=== PATIENT | female | born 1990 | race Caucasian/White ===

== ENCOUNTER 2017-10-21 19:25 | Emergency (ER) | payer SELFPAY ==
[~2017-10-21] VITALS: Ht 264.2 cm; Wt 79.4 kg
[~2017-10-21 19:25] MED LIST: CEPHALEXIN500 MG PO; CIPRO250 MG PO; CIPRO500 MG PO; IBUPROFEN600 MG PO; IRON325 M1 PO; KEFLEX500 MG PO; NEURONTIN300 MG PO; NORCO 5-325 TA1 EACH PO; OXYCODON-ACETA1 EAC2 PO; TUSSIN CF COUG118 ML PO; TYLENOL EXTRA500 MG PO; VENTOLIN HFA18 GM INH; VITAMIN C500 M1 PO; ZOFRAN ODT4 MG PO; ZOFRAN ODT4 MG SL
[2017-10-21] MEDS ORDERED: AMOXICILLIN500 MG PO (21:31)
== END 2017-10-21 21:59 | disposition home or self-care (01) ==
LOC: ED 19:25
DX: J02.9 Acute pharyngitis, unspecified (principal); D64.9 Anemia, unspecified; F17.200 Nicotine dependence, unspecified, uncomplicated; Z88.5 Allergy status to narcotic agent; Z88.8 Allergy status to other drugs, medicaments and biological substances
CPT/HCPCS: 87081; 87147; 87880; 99283

== ENCOUNTER 2020-03-11 19:09 | Emergency (ER) | payer OTHER ==
[~2020-03-11] VITALS: Ht 162.6 cm; Wt 90.7 kg
[~2020-03-11 19:09] MED LIST changes: +AMOXICILLIN500 MG PO
[2020-03-11] MEDS ORDERED: MELOXICAM15 MG PO (20:21)
[2020-03-11] MEDS ORDERED: CITALOPRAM HBR10 MG PO (20:22)
== END 2020-03-11 21:05 | disposition home or self-care (01) ==
LOC: ED 19:09
DX: T65.891A Toxic effect of other specified substances, accidental (unintentional), initial encounter (principal); H10.212 Acute toxic conjunctivitis, left eye; D64.9 Anemia, unspecified; F17.200 Nicotine dependence, unspecified, uncomplicated; Z88.5 Allergy status to narcotic agent; Z88.8 Allergy status to other drugs, medicaments and biological substances; Z79.899 Other long term (current) drug therapy
CPT/HCPCS: 99283

== ENCOUNTER 2020-08-28 13:57 | Emergency (ER) | payer OTHER ==
[~2020-08-28] VITALS: Ht 162.6 cm; Wt 104.3 kg
[~2020-08-28 13:57] MED LIST changes: +CITALOPRAM HBR10 MG PO; +MELOXICAM15 MG PO
[2020-08-28] MEDS ORDERED: PREDNISONE20 MG PO (16:45)
--- NOTE | 2020-08-29 12:38 | EKG ---
[facility] [address] [facility] [place], [place] [address] Signed Normal sinus rhythm with sinus arrhythmia Normal ECG No previous ECGs available Confirmed by HANK AMES DO ([id number]) on 08/29/2020 12:38:39 PM Electronically Signed By: HANK AMES DO 08/29/20 1238 PATIENT NAME: KIPANDRES NICHOLS Electrocardiogram DATE OF : [birth year] PHYSICIAN: HANK AMES DO REPORT #: [id number] REPORT IS CONFIDENTIAL AND NOT TO BE RELEASED WITHOUT AUTHORIZATION
== END 2020-08-28 16:58 | disposition home or self-care (01) ==
LOC: ED 13:57
DX: J45.901 Unspecified asthma with (acute) exacerbation (principal); Z20.828 Contact with and (suspected) exposure to other viral communicable diseases; D64.9 Anemia, unspecified; Z87.891 Personal history of nicotine dependence; Z88.5 Allergy status to narcotic agent; Z88.8 Allergy status to other drugs, medicaments and biological substances; Z79.899 Other long term (current) drug therapy
CPT/HCPCS: 71045; 80053; 83735; 84484; 85025; 93005; 93010; 99285-25; C9803; J7512; U0003

== ENCOUNTER 2021-03-02 05:41 | Day surgery (SDC) | payer BC, OTHER ==
[~2021-03-02] VITALS: Ht 162.6 cm; Wt 100.0 kg
[~2021-03-02 05:41] MED LIST changes: +HYDROXYZINE HCL50 MG PO; +PREDNISONE20 MG PO; +WELLBUTRIN SR150 MG PO
--- NOTE | 2021-03-02 06:40 | NUR ---
DENIES ANY NEEDS UPDATED. IV PATENT.
--- NOTE | 2021-03-02 08:58 | NUR ---
03/02/21 0858 Amrita Duran 0850-PT TO PACU IN SF POSITION. RESPONDS TO VERBAL AND TACTILE STIMULI. KEEPS EYES CLOSED. DROWSY. UNABLE TO RATE PAIN. BREATHING EASY AND UNLABORED. SPO2 >95% ON 6 L O2 VIA SIMPLE MASK. DRESSINGS CDI.
--- NOTE | 2021-03-02 09:48 | NUR ---
PT ALERT, ORIENTED AND SUPPORTED BY HER LIFE PARTNER YESENIA. HE IS CONCERNED ABOUT PT'S ANXIOUS FEELINGS. GAVE ENCOURAGEMENT, DID SOME DEBRIEFING AND HELPED PT KNOW WHAT TO EXPECT. THIS SEEMED TO HELP HER AND THAT DR LARA CAME TO VISIT WITH HER. PT REQUESTED PRAYER, YESENIA WITH REMAIN IN BLDG. WILL FOLLOW NEEDED
--- NOTE | 2021-03-02 11:50 | NUR ---
1140 STATES PAIN 4/10 MUCH BETTER AND IS READY TO GO HOME.
--- NOTE | 2021-03-03 10:44 | PATH ---
[facility] [address] [place], [place] [address] Signed SPECIMEN(S): A ENDOMETRIAL POLYP CURRETTINGS SPECIMEN SOURCE: A. ENDOMETRIAL POLYP CURRETTINGS CLINICAL HISTORY: PCOS; dysmenorrhea; dyspareunia FINAL PATHOLOGIC DIAGNOSIS: Endometrium and polyp, curettage: - Fragments of benign endometrial polyp. - Background proliferative endometrium. - Fragments of myometrium with no histopathologic abnormality. - Negative for atypical hyperplasia or malignancy. NAL:cml:C2NR MICROSCOPIC EXAMINATION: Histologic sections of all submitted blocks are examined by light microscopy. These findings, together with the gross examination, support the pathologic diagnosis. GROSS DESCRIPTION: The specimen, labeled "HW, endometrial polyp and curettings," is received in formalin and consists of irregularly shaped pink-mariee, membranous tissue fragments that in aggregate measure 3.0 x 2.5 x 0.2 cm. Specimen is entirely submitted in cassette (A1). JS (under the direct supervision of a pathologist) The Gross Description was prepared using a voice recognition system. The report was reviewed for accuracy; however, sound-alike word errors, addition and/or deletions may occur. If there is any question about this report, please contact Client Services. PERFORMING LABORATORY: The technical component was performed by [facility], [address] [place] [id number] (Box Printing Machine Operator: Ellen Silva MD; CLIA# [id number]). [facility], [address] [address] (CLIA# [id number]). Diagnostician: Frances Noel MD Pathologist PATIENT NAME: ANDRES SHIN PATHOLOGY DATE OF : [birth year] REPORT #: [id number] PHYSICIAN: ALAN PATHOLOGY PCP: DAMIAN SOSA PA-C REPORT IS CONFIDENTIAL AND NOT TO BE RELEASED WITHOUT AUTHORIZATION [facility] [address] [place] [id number] Signed Electronically Signed 03/03/2021 Copies: ~ PATIENT NAME: ANDRES SHIN PATHOLOGY DATE OF : [birth year] REPORT #: [id number] PHYSICIAN: ALAN PATHOLOGY PCP: DAMIAN SOSA PA-C REPORT IS CONFIDENTIAL AND NOT TO BE RELEASED WITHOUT AUTHORIZATION
--- NOTE | 2021-03-11 19:30 | OR ---
[facility] [address] [place], [place] [address] Signed DATE OF OPERATION: 03/02/2021 SURGEON: Alfred Montelongo DO GRAINER MACHINE: JOÃO Jacobs, PROCEDURES: Hysteroscopy, dilation and curettage, diagnostic laparoscopy, chromotubation. PREOPERATIVE DIAGNOSES: Abnormal uterine bleeding, dysmenorrhea, dyspareunia, pelvic pain. POSTOPERATIVE DIAGNOSES: Abnormal uterine bleeding, dysmenorrhea, dyspareunia, pelvic pain, endometrial polyps, endometriosis. BLOOD LOSS: 5 mL. COMPLICATIONS: None. FINDINGS: Mild cervical stenosis consistent with history of LEEP. Small endometrial polyp roughly 5 mm on left uterine body in the anterior lower uterine segment, sessile polyp measuring 1 cm near left cornua, bilaterally visualized tubal ostia. Normal-appearing endometrial lining. Laparoscopy: Normal-appearing liver margin and gallbladder. Uterus without abnormalities. Bilateral tubes appeared dilated. Pelvic vasculature appears congested. Ovaries appeared normal. However, there are significant adhesions between ovary and abdominal wall, ovary and uterus, tubes and abdominal wall and tubes and ovaries, left worse than right, consistent with endometriosis. Additional dense scarring noted between ovary and uterus and abdominal wall bilaterally, worse on the left than on the right. No spillage of dye on either side was noted with ilfiltration of methylene blue dye for chromotubation. Electronically Signed By: ALFRED MONTELONGO DO 03/11/211929 PATIENT NAME: KIPANDRES RODRIGUEZ OPERATIVE REPORT DATE OF : [birth year] REPORT #: [id number] PHYSICIAN: ALFRED MONTELONGO DO PCP: DAMIAN SOSA PA-C REPORT IS CONFIDENTIAL AND NOT TO BE RELEASED WITHOUT AUTHORIZATION [facility] [address] [place], [place] [address] Signed INDICATIONS: The patient is a 31-year-old female with longstanding history of pelvic pain, dyspareunia and dysmenorrhea as well as heavy periods, who presented to the office for further evaluation. Ultrasound revealed likely endometrial polyp and ovaries consistent with PCOS. Risks, benefits, and alternatives to hysteroscopy, D and C and diagnostic laparoscopy with possible fulguration versus excision of endometriosis and chromotubation were discussed. The patient elected to proceed. DESCRIPTION OF PROCEDURE: The patient was taken to the operating room where she was placed under general anesthesia and positioned in dorsal lithotomy with Yellofin stirrups. She was prepped and draped in the normal sterile fashion. A Walker catheter was inserted. A weighted speculum was placed in the vagina and the anterior lip of the cervix was grasped with Allis clamp. The cervix was attempted to be dilated with Hegar dilators, but stenosis was encountered. Scope was inserted, confirming a straight endocervical canal. Scope was removed and the cervix was successfully dilated with Hegar dilators to accommodate 6 mm scope. The scope was inserted without incident. Endometrial cavity was surveyed with findings as noted above including bilateral tubal ostia. Circumferential curettage and polypectomy were performed with MyoSure reach device. Scope and MyoSure device were removed. An Ironwood manipulator was placed without difficulty. Surgeon's gloves were changed. Attention was turned to the abdomen where 1% lidocaine with epinephrine was injected in the umbilicus. Vertical umbilical incision was made with a scalpel to accommodate a 5 mm trocar and direct entry of the scope and a 5 mm trocar was performed without complication. Abdomen was insufflated with CO2. Pneumoperitoneum was achieved. Trendelenburg positioning was used to try and visualize the pelvis. Decision was made to add an additional trocar for further retraction of bowel. A 5 mm incision was made in the right lateral abdomen after infiltration with local anesthetic and trocar was placed under direct visualization. Blunt probe was further used to facilitate retraction of bowel from the pelvis and the pelvis was surveyed with findings as noted above. Dilute methylene blue solution was injected through the Ironwood manipulator and could be seen filling the tubes, but no spillage was visualized after infiltration of 40 mL of solution. All instrumentation was removed. Pneumoperitoneum was evacuated. Skin incisions were closed with 4-0 Monocryl and Ironwood manipulator and Walker catheter were removed. All sponge and instrument counts were correct x2 and the patient was taken to recovery room in stable and satisfactory condition. Alfred Montelongo DO Electronically Signed By: ALFRED MONTELONGO DO 03/11/211929 PATIENT NAME: ANDRES SHIN OPERATIVE REPORT DATE OF : [birth year] REPORT #: [id number] PHYSICIAN: ALFRED MONTELONGO DO PCP: DAMIAN SOSA PA-C REPORT IS CONFIDENTIAL AND NOT TO BE RELEASED WITHOUT AUTHORIZATION [address] [address] Signed EMZ/MODL /[id number] Copies: ~ Electronically Signed By: ALFRED MONTELONGO DO 03/11/21 1930 PATIENT NAME: ANDRES SHIN OPERATIVE REPORT DATE OF : [birth year] REPORT #: [id number] PHYSICIAN: ALFRED MONTELONGO DO PCP: DAMIAN SOSA PA-C REPORT IS CONFIDENTIAL AND NOT TO BE RELEASED WITHOUT AUTHORIZATION
== END 2021-03-02 11:40 | disposition home or self-care (01) ==
LOC: DS 05:41 → OPS 05:41 → DS 08:45 → OPS 11:40
PROVIDERS: ATTEND Obstetrics & Gynecology
PROC: 0UDB8ZX Extraction of Endometrium, Via Natural or Artificial Opening Endoscopic, Diagnostic (ICD-10-PCS; principal; 2021-03-02 06:45)
DX: N94.6 Dysmenorrhea, unspecified (principal); N93.9 Abnormal uterine and vaginal bleeding, unspecified; N94.10 Unspecified dyspareunia; E28.2 Polycystic ovarian syndrome; Z84.2 Family history of other diseases of the genitourinary system; Z87.891 Personal history of nicotine dependence
CPT/HCPCS: 00952; J0131; J1100; J1885; J2001; J2250; J2405; J2704; J3010; J7121; Q9968

== ENCOUNTER 2022-02-10 21:24 | Emergency (ER) | payer OTHER ==
[~2022-02-10] VITALS: Ht 162.6 cm; Wt 117.3 kg
[2022-02-10] MEDS ORDERED: WELLBUTRIN XL300 MG PO (21:45)
== END 2022-02-10 21:55 | disposition home or self-care (01) ==
LOC: ED 21:24
DX: M25.562 Pain in left knee (principal); D64.9 Anemia, unspecified; F17.200 Nicotine dependence, unspecified, uncomplicated; Z88.5 Allergy status to narcotic agent; Z79.899 Other long term (current) drug therapy
CPT/HCPCS: 99283

== ENCOUNTER 2024-01-11 11:04 | Emergency (ER) | payer BC, OTHER ==
[~2024-01-11] VITALS: Ht 162.6 cm; Wt 105.8 kg
[~2024-01-11 11:04] MED LIST changes: +REGLAN10 MG PO; +WELLBUTRIN XL300 MG PO
[2024-01-11 12:30] LABS: BILIRUBIN, URINE NEGATIVE (negative); BLOOD/HGB, URINE MODERATE (Negative); KETONE, URINE NEGATIVE (Negative); LEUK ESTERASE, URINE NEGATIVE (negative); NITRITE, URINE NEGATIVE (negative)
[2024-01-11 12:39] LABS: EPITHELIAL CELLS, URINE SQUAMOUS 2+ /lpf (0-1+)
[2024-01-11 12:40] LABS: BACTERIA, URINE RARE /hpf (negative); CASTS, URINE NONE SEEN \\lpf; COLLECTION TYPE, URINE CLEAN CATCH; CRYSTALS, URINE NONE SEEN (0-1+); REFLEX CULTURE, URINE No (No)
[2024-01-11 12:47] LABS: BASOPHILS 0.5 % (0-2); EOSINOPHILS 1.3 % (0-6); HEMATOCRIT 37.8 % (35.0-50.0); HEMOGLOBIN 12.5 g/dL (12.0-18.0); LYMPHOCYTES 18.5 % (24-44); MCH 28.5 (27-36); MCHC 33.1 g/dl (30-36); MCV 86.1 fl (81-99); MONOCYTES 5.8 % (0-12); NEUTROPHILS 73.9 % (39-80); PLATELET COUNT 336 K/uL (140-440); RBC 4.39 M/ul (4.3-5.7); RDW 13.6 (10.5-15.0)
[2024-01-11] MEDS ORDERED: KETOROLAC TROMETHAMINE 15 MG/ML VIAL IV ONE (13:00)
[2024-01-11 13:02] LABS: ALBUMIN 3.4 g/dL (3.4-5.0); ALBUMIN/GLOBULIN RATIO 0.92 (1.1-2.4); ANION GAP 13.8 (7-21); BILIRUBIN, TOTAL 0.2 ng/dL (0.2-1.0); BUN/CREATININE RATIO 14.49 (6.0-28.6); CREATININE, SERUM 0.69 mg/dL (0.55-1.02); POTASSIUM 3.8 mmol/L (3.5-5.1); PROTEIN, TOTAL 7.1 g/dL (6.4-8.2)
[2024-01-11] MEDS ORDERED: SODIUM CHLORIDE 0.9% 500 ML IV PRN (14:00)
[2024-01-11] MEDS ORDERED: MELOXICAM15 MG PO (14:43)
[2024-01-11 15:01] VITALS: BP 138/93
== END 2024-01-11 15:02 | disposition home or self-care (01) ==
LOC: ED 11:04
PROVIDERS: Emergency Medicine
DX: R10.2 Pelvic and perineal pain (principal); F17.200 Nicotine dependence, unspecified, uncomplicated; Z88.5 Allergy status to narcotic agent; Z88.8 Allergy status to other drugs, medicaments and biological substances; Z79.899 Other long term (current) drug therapy
CPT/HCPCS: 36415; 74177; 80053; 81001; 83690; 84703; 85025; 99284-25; J1885; J7040

== ENCOUNTER 2024-08-19 00:35 | Emergency (ER) | payer OTHER ==
[~2024-08-19] VITALS: Ht 162.6 cm; Wt 95.0 kg
[2024-08-19 01:00] LABS: BILIRUBIN, URINE NEGATIVE (negative); BLOOD/HGB, URINE NEGATIVE (Negative); KETONE, URINE NEGATIVE (Negative); LEUK ESTERASE, URINE NEGATIVE (negative); NITRITE, URINE POSITIVE (negative)
[2024-08-19] MEDS ORDERED: PYRIDIUM100 MG PO (01:10)
[2024-08-19] MEDS ORDERED: MACROBID 100 M100 MG PO (01:10)
[2024-08-19] MEDS ORDERED: PHENAZOPYRIDINE HCL 95 MG TAB PO ONE (01:15)
[2024-08-19] MEDS ORDERED: NITROFURANTOIN MONOHYD MACROCR 100 MG CAP PO ONE (01:15)
[2024-08-19 01:16] LABS: BACTERIA, URINE 1+ /hpf (negative); CASTS, URINE NONE SEEN \\lpf; CRYSTALS, URINE NONE SEEN (0-1+); EPITHELIAL CELLS, URINE SQUAMOUS 1+ /lpf (0-1+)
[2024-08-19 01:17] LABS: COLLECTION TYPE, URINE CLEAN CATCH; REFLEX CULTURE, URINE No (No)
[2024-08-19 01:46] VITALS: BP 123/78
== END 2024-08-19 01:46 | disposition home or self-care (01) ==
LOC: ED 00:35
PROVIDERS: Internal Medicine
DX: N39.0 Urinary tract infection, site not specified (principal); F17.200 Nicotine dependence, unspecified, uncomplicated; Z88.5 Allergy status to narcotic agent; Z88.4 Allergy status to anesthetic agent; Z91.048 Other nonmedicinal substance allergy status
CPT/HCPCS: 81001; 84703; 87077; 87088; 99283

== ENCOUNTER 2025-01-04 15:42 | Emergency (ER) | payer BC, OTHER ==
[~2025-01-04] VITALS: Ht 162.6 cm; Wt 98.9 kg
[~2025-01-04 15:42] MED LIST changes: +MACROBID 100 M100 MG PO; +PYRIDIUM100 MG PO
[2025-01-04] MEDS ORDERED: diphenhydrAMINE HCL 50 MG/ML VIAL IV ONE (19:15)
[2025-01-04] MEDS ORDERED: SODIUM CHLORIDE 0.9% 1,000 ML IV SCH (19:15)
[2025-01-04] MEDS ORDERED: METOCLOPRAMIDE HCL 10 MG/2 ML SDV IV ONE (19:15)
[2025-01-04] MEDS ORDERED: KETOROLAC TROMETHAMINE 30 MG/ML VIAL IV ONE (19:15)
[2025-01-04 20:22] VITALS: BP 116/68
== END 2025-01-04 20:22 | disposition home or self-care (01) ==
LOC: ED 15:42
DX: R51.9 Headache, unspecified (principal); F17.200 Nicotine dependence, unspecified, uncomplicated; Z88.5 Allergy status to narcotic agent; Z88.1 Allergy status to other antibiotic agents; Z88.9 Allergy status to unspecified drugs, medicaments and biological substances; Z88.8 Allergy status to other drugs, medicaments and biological substances; Z88.0 Allergy status to penicillin
CPT/HCPCS: 70450; 96361; 96374; 96375; 99284-25; J1200; J1885; J2765; J7030